=== PATIENT | female | born 2000 | race Native Hawaiian/Other Pacific Islander ===

== ENCOUNTER 2022-04-27 12:00 | Observation (INO) | payer MEDICAID ==
[~2022-04-27] VITALS: Ht 157.5 cm; Wt 40.0 kg
[2022-04-27] MEDS ORDERED: PROMETHAZINE INJ 25 MG/ML (PHENERGAN) AMP IVP PRN (13:00)
[2022-04-27] MEDS ORDERED: FAMOTIDINE 20 MG (PEPCID) TABLET PO SCH (13:00)
[2022-04-27] MEDS ORDERED: ONDANSETRON 4 MG/2 ML (SDV) Z0FRAN IVP PRN (13:00)
[2022-04-27] MEDS ORDERED: NS IV 1000 ML 1,000 ML ONE (13:08)
[2022-04-27] MEDS: NS IV 1000 ML 1,000 ML IV SCH ×2 (13:14→18:43)
[2022-04-27 13:15] VITALS: BP 107/57
[2022-04-27 13:50] LABS: HEMATOCRIT 34 % (35-52); HEMOGLOBIN 11.9 g/dL (11.5-16.0); MEAN CORPUSCULAR HEMOGLOBIN 30 pg (25-34); MEAN CORPUSCULAR HGB CONC 35 g/dL (32-36); MEAN CORPUSCULAR VOLUME 85 fL (80-99); MEAN PLATELET VOLUME 12.1 fL (9.0-12.2); PLATELET COUNT 185 10^3/uL (130-400); WHITE BLOOD COUNT 8.3 10^3/uL (4.3-11.0)
[2022-04-27 13:57] LABS: ALBUMIN 3.2 GM/DL (3.2-4.5); POTASSIUM 3.7 MMOL/L (3.6-5.0)
[2022-04-27 13:59] LABS: CALCIUM 8.1 MG/DL (8.5-10.1)
[2022-04-27 14:00] LABS: TOTAL PROTEIN 5.8 GM/DL (6.4-8.2)
[2022-04-27 14:03] LABS: CREATININE SERUM 0.62 MG/DL (0.60-1.30)
[2022-04-27 16:27] VITALS: BP 101/49
--- NOTE | 2022-04-27 17:14 | Diagnostic Imaging Report ---
INDICATION: survey. TECHNIQUE: Multiple real-time grayscale images were obtained over the gravid uterus. COMPARISON: None. FINDINGS: Larson viable intrauterine gestation has congruent biometrical measurements correlating with an age of 17 weeks 4 days with an estimated date of confinement of 10/01/2022. Positioning was variable throughout the exam. The placenta is posterior fundal with no abruption or previa. Cervix is nondilated at 3.1 cm. There was no pathological finding at the early anatomical survey, however there was limited visualization of the ventricular outflow tracts, intracranial structures, as well as kidneys. Heartbeat was 152 BPM. Amniotic fluid volume was unremarkable. Biometrical measurements are as follows: Biparietal 3.87 cm, age 17 weeks 6 days. Head circumference 14.31 cm, age 17 weeks 4 days. Abdominal circumference 12.56 cm, age 18 weeks 2 days. Femur length 2.11 cm, age 16 weeks 3 days. Sonographic estimate age: 17 weeks 4 days. Sonographic estimated date of delivery: 10/01/2022. Estimated Weight: 190 gm (+/- 28 gm). LMP percentile: 46%. heart rate: 152 beats per minute. number: 1 of 1. IMPRESSION: 1. Early Larson viable IUP with no pathological finding identified. 2. No abnormality at the anatomical survey which was limited, as described. Dictated by: Dictated on workstation # [id number]
[2022-04-27 20:08] LABS: AMPHETAMINE SCREEN, URINE NEGATIVE (NEGATIVE); BARBITURATE SCREEN URINE NEGATIVE (NEGATIVE); BENZODIAZEPINES SCREEN URINE NEGATIVE (NEGATIVE); CANNABINOID SCREEN, URINE NEGATIVE (NEGATIVE); COCAINE SCREEN URINE NEGATIVE (NEGATIVE); METHADONE STAT NEGATIVE (NEGATIVE); OPIATE SCREEN URINE NEGATIVE (NEGATIVE); OXYCODONE STAT NEGATIVE (NEGATIVE); PROPOXYPHENE STAT NEGATIVE (NEGATIVE); TRICYCLIC ANTIDEPRESSANTS SCRE NEGATIVE (NEGATIVE)
[2022-04-27 20:10] VITALS: BP 107/56
[2022-04-28] MEDS: NS IV 1000 ML 1,000 ML IV SCH ×2 (01:20→08:07)
[2022-04-28 03:00] VITALS: BP 108/59
[2022-04-28 08:10] VITALS: BP 102/58
[2022-04-28] MEDS ORDERED: FAMO20TA5 PO (08:52)
--- NOTE | 2022-04-28 08:53 | Short Stay Summary ---
Discharge Summary Hospital Course Final Diagnosis: hyperemesis gravidarum at 17wk GA Hospital Course Date of Admission: Apr 27, 2022 at 12:00 Admission Diagnosis : 1. 17wk GA 2. hyperemesis Family Physician/Provider: Alberto Date of Discharge: 04/28/22 Discharge Diagnosis: same Hospital Course: Treated with IVF and antiemetics. Was tolerating oral intake and DC'd to home on 04/28/22. OB US confirmed ANDIE and normal limited survey. Labs and Pending Lab Test: Laboratory Tests 04/27/22 13:39: White Blood Count 8.3, Red Blood Count 4.04, Hemoglobin 11.9, Hematocrit 34L, Mean Corpuscular Volume 85, Mean Corpuscular Hemoglobin 30, Mean Corpuscular Hemoglobin Concent 35, Red Cell Distribution Width 12.5, Platelet Count 185, Mean Platelet Volume 12.1, Maternal Screen Repeat Sample [Pending], Gestational Age (Calculated) [Pending], Maternal Date of LMP or US/PE [Pending], Estimated Delivery Date [Pending], Maternal Ethnicity ([facility] [place]) [Pending], Maternal Weight [Pending], Insulin Dependent Diabetes [Pending], Down Syndrome History [Pending], Number of Fetuses [Pending], Maternal Serum AFP Screen [Pending], Alpha Fetoprotein MoM Quad Test [Pending], Maternal Serum HCG [Pending], HCG Total MoM [Pending], Maternal Serum Unconjugated Estriol [Pending], Estriol MoM [Pending], Maternal Serum Inhibin A [Pending], Inhibin A MoM [Pending], Down Syndrome Maternal Age Risk [Pending], Down Syndrome Risk [Pending], Trisomy 18 Risk [Pending], Neural Tube Defect Screen [Pending], Family History Neural Tube Defect [Pending], Maternal Serum Screen Interpetation [Pending], Sodium Level 138, Potassium Level 3.7, Chloride Level 107, Carbon Dioxide Level 21, Anion Gap 10, Blood Urea Nitrogen 7, Creatinine 0.62, Estimat Glomerular Filtration Rate 131, BUN/Creatinine Ratio 11, Glucose Level 77, Calcium Level 8.1L, Corrected Calcium 8.7, Total Bilirubin 1.0, Aspartate Amino Transf (AST/SGOT) 14, Alanine Aminotransferase (ALT/SGPT) 10, Alkaline Phosphatase 28L, Total Protein 5.8L, Albumin 3.2, Thyroid Stimulating Hormone (TSH) 1.05 04/27/22 19:40: Urine Opiates Screen NEGATIVE, Urine Oxycodone Screen NEGATIVE, Urine Methadone Screen NEGATIVE, Urine Propoxyphene Screen NEGATIVE, Urine Barbiturates Screen NEGATIVE, Ur Tricyclic Antidepressants Screen NEGATIVE, Urine Phencyclidine Screen NEGATIVE, Urine Amphetamines Screen NEGATIVE, Urine Methamphetamines Screen NEGATIVE, Urine Benzodiazepines Screen NEGATIVE, Urine Cocaine Screen NEGATIVE, Urine Cannabinoids Screen NEGATIVE Assessment/Pt Instructions RX for famotidine 20mg BID Follow up with Dr. Dominguez next week. Discharge Instructions Discharge Diet: No Restrictions Activity as Tolerated: Yes Discharge Physical Examination General Appearance: Alert, Oriented X3, Cooperative Psych/Mental Status: Mental Status NL, Mood NL Allergies: Coded Allergies: No Known Drug Allergies (Unverified , 04/27/22) Discharge Summary Date of Admission Apr 27, 2022 at 12:00 Date of Discharge STEVE MCALLISTER DO Apr 28, 2022 08:53
[2022-04-28 12:14] VITALS: BP 102/58
== END 2022-04-28 08:49 | disposition home or self-care (01) ==
LOC: UNDOADMOB 12:00 → LDRP 12:00 → UNDODISOB 04-28 13:10
PROVIDERS: ADMIT Family Medicine; ATTEND Family Medicine
DX: O21.0 Mild hyperemesis gravidarum (principal); Z3A.17 17 weeks gestation of pregnancy
CPT/HCPCS: 36415; 76805; 80053; 80306; 82677; 84443; 84702; 85027; 86336; 96360; 96361; G0378